=== PATIENT | female | born 1995 ===

== ENCOUNTER 2017-07-13 22:24 | Emergency (ER) | payer MEDICAID, OTHER ==
[2017-07-13 22:34] VITALS: BP 119/80; PULSE 100; RESP 18; TEMP 98.4; O2SAT 100
[2017-07-13 22:52] LABS: RBC URINE 5 /hpf (0-3); URINE BACTERIA OCC (<OCC); URINE BILIRUBIN NEGATIVE (NEGATIVE); URINE BLOOD NEGATIVE (NEGATIVE); URINE COLOR Yellow (YELLOW); URINE GLUCOSE (UA) NORMAL (Normal); URINE KETONE NEGATIVE (NEGATIVE); URINE LEUKOCYTE ESTERASE 1+ Leu/uL (Negative); URINE PROTEIN NEGATIVE (NEGATIVE); URINE UROBILINOGEN NORMAL mg/dL (0.2-1.0); WBC URINE 10 /hpf (0-5)
--- NOTE | 2017-07-14 00:34 | C.PDOC ---
History Of Present Illness 21 y/o female c/o a lump in the vaginal canal for 3 days. Patient states she had similar symptoms 6 months prior, which has self resolved. Reports discomfort when urinating and during sexual intercourse. Denies dysuria, hematuria, vaginal discharge, or any other complaints. Time Seen by Provider: 07/13/17 22:58 Chief Complaint (Nursing): Female Genitourinary History Per: Patient History/Exam Limitations: no limitations Onset/Duration Of Symptoms: Days (3) Current Symptoms Are (Timing): Still Present Severity: Mild Additional History Per: Patient Past Medical History Reviewed: Historical Data, Nursing Documentation, Vital Signs Vital Signs: Last Vital Signs Temp 98.4 F 07/13/17 22:31 Pulse 100 H 07/13/17 22:31 Resp 18 07/13/17 22:31 BP 119/80 07/13/17 22:31 Pulse Ox 100 07/14/17 01:15 Family History: States: Unknown Family Hx - Social History Hx Alcohol Use: No Hx Substance Use: No - Immunization History Hx Tetanus Toxoid Vaccination: Yes Hx Influenza Vaccination: No Hx Pneumococcal Vaccination: No Review Of Systems Except As Marked, All Systems Reviewed And Found Negative. Genitourinary: Positive for: Other (Lump in the vaginal canal). Negative for: Dysuria (Discomfort when urination), Hematuria, Vaginal Discharge Physical Exam - Physical Exam Appears: Non-toxic, No Acute Distress Skin: Warm, Dry Gastrointestinal/Abdominal: Soft, No Tenderness Pelvic: No Vaginal Bleeding, No Vaginal Discharge, Other (non tender, nonflucuant mass at the entrance of the vagina extending up to the roof of the vagina. ) Neurological/Psych: Oriented x3 ED Course And Treatment O2 Sat by Pulse Oximetry: 100 (RA) Pulse Ox Interpretation: Normal Progress Note: Plans: UA. Patient is in no acute distress. Patient was instructed to follow up with her PMD and/or [employer] ARCHITECT for further evaluation. Disposition Counseled Patient/Family Regarding: Diagnosis, Need For Followup, Rx Given - Disposition Referrals: [facility] [Outside] [facility] [Outside] Disposition: HOME/ ROUTINE Disposition Time: 00:32 Condition: STABLE Additional Instructions: Please follow up with PMD Take meds as directed Return to ER if worse Prescriptions: Ibuprofen [Motrin] 600 mg PO Q6H #20 tab Instructions: Cystocele (ED) Forms: [facility] (Vietnamese) - Clinical Impression Clinical Impression: Lump in vagina - Scribe Statement The provider has reviewed the documentation as recorded by the Scribe Katy waite All medical record entries made by the Grettaibe were at my direction and personally dictated by me. I have reviewed the chart and agree that the record accurately reflects my personal performance of the history, physical exam, medical decision making, and the department course for this patient. I have also personally directed, reviewed, and agree with the discharge instructions and disposition.
== END 2017-07-14 00:38 | disposition home or self-care (01) ==
LOC: C.ER 22:24
DX: N89.8 Other specified noninflammatory disorders of vagina (principal)

== ENCOUNTER 2018-03-02 23:50 | Emergency (ER) | payer SELFPAY ==
[2018-03-03] VITALS: O2SAT 99
[2018-03-03 00:32] LABS: SQUAMOUS EPITHIAL 5 /hpf (0-5); URINE BILIRUBIN NEGATIVE (NEGATIVE); URINE BLOOD 3+ (NEGATIVE); URINE COLOR Yellow (YELLOW); URINE GLUCOSE (UA) NORMAL (Normal); URINE LEUKOCYTE ESTERASE 1+ Leu/uL (Negative); URINE PROTEIN NEGATIVE (NEGATIVE)
[2018-03-03 00:34] LABS: URINE CLARITY Hazy (Clear)
[2018-03-03 00:35] LABS: HCG,QUALITATIVE URINE NEGATIVE (NEGATIVE)
--- NOTE | 2018-03-03 01:38 | C.PDOC ---
History Of Present Illness 22 year old female presents to the ED c/o vaginal bleeding associated with dysuria, suprapubic pressure over the past 3 days. Patient reports she had similar symptoms a month ago after which she was diagnosed with a UTI. Patient denies fever, chills, nausea, vomit, diarrhea, back pain, abdominal pain. Time Seen by Provider: 03/03/18 00:06 Chief Complaint (Nursing): Female Genitourinary History Per: Patient History/Exam Limitations: no limitations Onset/Duration Of Symptoms: Days Current Symptoms Are (Timing): Still Present Quality Of Discomfort: "Pain" Associated Symptoms: Urinary Symptoms. denies: Nausea, Vomiting, Diarrhea Alleviating Factors: None Recent travel outside of the [place]: No Additional History Per: Patient Abnormal Vaginal Bleeding: Yes Past Medical History Reviewed: Historical Data, Nursing Documentation, Vital Signs Vital Signs: Last Vital Signs Temp 98.4 F 03/03/18 01:46 Pulse 82 03/03/18 01:46 Resp 14 03/03/18 01:46 BP 118/81 03/03/18 01:46 Pulse Ox 99 03/03/18 01:46 - Medical History PMH: No Chronic Diseases Surgical History: No Surg Hx Family History: States: No Known Family Hx - Social History Hx Alcohol Use: No Hx Substance Use: No - Immunization History Hx Tetanus Toxoid Vaccination: No Hx Influenza Vaccination: No Hx Pneumococcal Vaccination: No Review Of Systems Except As Marked, All Systems Reviewed And Found Negative. Gastrointestinal: Positive for: Abdominal Pain Genitourinary: Positive for: Vaginal Bleeding Physical Exam - Physical Exam Appears: Non-toxic, No Acute Distress Skin: Normal Color, Warm, No Rash Head: Atraumatic, Normacephalic Eye(s): bilateral: Normal Inspection, PERRL, EOMI Oral Mucosa: Moist Throat: No Erythema, No Exudate Neck: Normal ROM, Supple Chest: Symmetrical, No Tenderness Cardiovascular: Rhythm Regular, No Friction Rub, No Murmur Respiratory: Normal Breath Sounds, No Rales, No Rhonchi, No Wheezing Gastrointestinal/Abdominal: Normal Exam, Bowel Sounds (active), Soft, No Tenderness, No Guarding, No Rebound, No Hernia Back: Normal Inspection, No CVA Tenderness Pelvic: Normal External Exam, Vaginal Bleeding (scant), Vaginal Discharge ( grayish odorous discharge), No Cervical Motion Tenderness, No Adnexal Tenderness , No Tender Uterus, Other (Cervical Os is closed. 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 - Macrobid 100 mg PO. - urine culture. - UA Disposition - Disposition Referrals: Alexandrea Etienne [Staff Provider] - Disposition: HOME/ ROUTINE Disposition Time: 01:39 Condition: STABLE Additional Instructions: Follow up with your OBGYN within 1-2 days without fail. Return if worsened. Prescriptions: metroNIDAZOLE [Flagyl] 500 mg PO BID #14 tab Nitrofurantoin Macrocrystals [Macrobid] 1 cap PO BID #14 cap Instructions: Urinary Tract Infections in Adults, Bacterial Vaginosis (DC) Forms: Work/School/Gym Excuse, [facility] (Venezuelan) - Clinical Impression Clinical Impression: UTI (urinary tract infection), Bacterial vaginosis - PA / [employer] / Resident Statement MD/DO has reviewed & agrees with the documentation as recorded. - Scribe Statement The provider has reviewed the documentation as recorded by the Scribe Sunny Rosenthal All medical record entries made by the Scribe were at my direction and personally dictated by me. I have reviewed the chart and agree that the record accurately reflects my personal performance of the history, physical exam, medical decision making, and the department course for this patient. I have also personally directed, reviewed, and agree with the discharge instructions and disposition.
[2018-03-03 01:47] VITALS: BP 118/81; PULSE 82; RESP 14; TEMP 98.4
== END 2018-03-03 01:46 | disposition home or self-care (01) ==
LOC: C.ER 23:50
DX: N39.0 Urinary tract infection, site not specified (principal); N76.0 Acute vaginitis; B96.89 Other specified bacterial agents as the cause of diseases classified elsewhere